=== PATIENT | female | born 1975 | race Two or more races ===

== ENCOUNTER 2018-03-26 18:22 | Emergency (ER) | payer OTHER ==
[2018-03-26] MEDS ORDERED: PIPERACILLIN/TAZO 3.375 GM/DEX 50 ML IV ONE (20:51)
--- NOTE | 2018-03-26 21:11 | EDPHY ---
H & P Stated Complaint: right ear infection for 3 days not getting better with treatment Time Seen by Provider: 03/26/18 19:43 HPI/ROS: Chief complaint: Right ear infection History of present illness: This is a 42-year-old female who presents to the emergency department for right ear infection. She reports the onset of pain and swelling to her right ear 5 days ago. She went to urgent care initially. She was diagnosed with what appears to be an otitis externa. She was initially placed on Cortisporin, she returned 2 days later symptoms persisted and they switched her to Cipro dex. However she states despite this symptoms have worsened with increasing pain and swelling. No report of fever. No report of cold symptoms. No report of headache or neck pain. No trauma. Review of systems: A 10 point review of systems was obtained and other than described above was negative. - Personal History LMP (Females 10-55): 8-14 Days Ago Current Tetanus/Diphtheria Vaccine: Yes Current Tetanus Diphtheria and Acellular Pertussis (TDAP): Yes Tetanus Vaccine Date: 2014 - Medical/Surgical History Hx Asthma: No Hx Chronic Respiratory Disease: No Hx Diabetes: No Hx Cardiac Disease: Yes Hx Renal Disease: No Hx Cirrhosis: No Hx Alcoholism: No Hx HIV/AIDS: No Hx Splenectomy or Spleen Trauma: No Other PMH: heart murmur, thyroid disease, C section x 3. - Social History Smoking Status: Never smoked - Physical Exam Exam: General Appearance: Alert and no distress. Eyes: Pupils equal and round no injection. ENT: The right external ear is mildly erythematous and edematous at the hot a yasir meatus. The external auditory canal is significantly edematous with malodorous discharge. I am unable to visualize the tympanic membrane. There is erythema and mild edema overlying the right mastoid. Left ear is unremarkable. Nasopharynx is not injected. There is no rhinorrhea. Oropharynx is not injected. There is no edema. There is no exudate. There is no asymmetry. The uvula is midline. No elevation of the tongue. There is no hoarseness, no drooling, no trismus, no stridor. Respiratory: Chest is non tender, lungs are clear to auscultation. Cardiac: regular rate and rhythm Musculoskeletal: Neck is supple and non tender. Extremities have full range of motion and are non tender. Skin: No rashes or lesions. Neurological: No meningismus. Alert and oriented x4. Strength and sensation intact and symmetrical. Constitutional: Initial Vital Signs Temperature (C) 37.9 C 03/26/18 18:25 Heart Rate 94 03/26/18 18:25 Respiratory Rate 18 03/26/18 18:25 Blood Pressure 111/70 03/26/18 18:25 O2 Sat (%) 97 03/26/18 18:25 O2 Delivery Mode Room Air Allergies/Adverse Reactions: No Known Allergies Allergy (Verified 03/26/18 18:24) Home Medications: Medication Instructions Recorded Amoxicillin/Clavulanate Pot 875 mg PO BID #20 tab 03/26/18 [Augmentin 875 MG TAB (*)] Amoxicillin/Clavulanate Pot 875 mg PO BID 10 Days tab 03/26/18 [Augmentin 875 MG TAB (*)] Ciprodex 03/26/18 Medical Decision Making - Diagnostics Imaging Results: Imaging Impressions Head CT 03/26/18 19:57 Impression: 1. Fluid completely opacifying the right mastoid air cells, right external auditory canal, and right middle ear suspicious for right otomastoiditis. 2. No abnormalities of the brain. 3. Consider follow-up MRI brain without and with contrast enhancement, if there is continued clinical concern. Findings and recommendations discussed with emergency department physician dental office assistant, Wilian Lawson PA-C at 2040 hours on March 26, 2018. Final report concurs with initial preliminary interpretation. Imaging: Discussed imaging studies w/ yard caller Radiologist Procedures: An ear wick was easily placed into the right external auditory canal. 4 drops of Ciprodex where instilled. ED Course/Re-evaluation: Patient was discussed with my primary supervising physician Dr. Kailey Beyer. Patient presents with worsening right ear pain. CT scan significant reveals evidence of otitis media, otitis externa and mastoiditis. I have consulted with on-call ENT, Dr. Navid Gillis. He recommends an ear wick be placed and patient continue cirpodex. IV Zosyn. Patient can be discharged on Augmentin. Follow up in his clinic on Wednesday. Patient remains well appearing. No evidence of toxicity. She is discharged home. The importance of following with ENT on Wednesday for recheck was discussed at length. Strict return precautions were given. manufacturing specialist was utilized to facilitate communication. Differential Diagnosis: Included but not limited to otitis externa including malignant otitis externa, otitis media, mastoiditis, unlikely abscess or meningitis - Data Points Medications Given: Discontinued Medications Piperacillin/Tazobactam/Dextrose (Zosyn 3.375 Gm (Premix)) 50 mls @ 100 mls/hr IV EDNOW ONE PRN Reason: Protocol Stop: 03/26/18 21:20 Last Admin: 03/26/18 21:22 Dose: 50 mls Ibuprofen (Motrin) 600 mg PO EDNOW ONE Stop: 03/26/18 21:13 Last Admin: 03/26/18 21:15 Dose: 600 mg Departure - Departure Disposition: Home, Routine, Self-Care Clinical Impression: Otitis externa Qualifiers: Otitis externa type: unspecified type Chronicity: acute Laterality: right Qualified Code(s): H60.501 - Unspecified acute noninfective otitis externa, right ear Otitis media Qualifiers: Otitis media type: unspecified Chronicity: acute Qualified Code(s): H66.90 - Otitis media, unspecified, unspecified ear Mastoiditis Qualifiers: Laterality: right Qualified Code(s): H70.91 - Unspecified mastoiditis, right ear Condition: Good Instructions: Otitis Externa (ED), Ear Infection (ED), Mastoiditis (ED) Additional Instructions: Please call the ENT doctor on Wednesday, tell them you were seen in the ER this and need a follow-up appointment on Wednesday without fail Take the oral antibiotics as prescribed until finished, even if feeling better. Continue to use the ear drops antibiotics twice a day until told otherwise by ENT The ENT doctor will remove the ear wick for you, if it falls out before then, that is okay If symptoms worsen or new symptoms develop please return immediately to the emergency room Llame al medico de ENT el , digales que la horner visot en la kadi de emergencias sarah fin de semana y necesita es ck de seguimiento el sin falta. [place] los antibioticos orales micky lo recetado hasta que termine, incluso si se siente mejor. Continue usando las gotas antibioticas para los oidos dos veces al zuri hasta que indique lo contrario El otorrinnolaringologo le quitara la mecha de la oreja, si se le antes, entoces esta terese. Sin los sintomas empeoran o se desarrollan nuevos sintomas, regrese de inmediato a la kadi de emergencias. Referrals: Sumaya Marquez MD [Primary Care Provider] - As per Instructions Navid Gillis MD [Medical Doctor] - As per Instructions Prescriptions: Amoxicillin/Clavulanate Pot [Augmentin 875 MG TAB (*)] 875 mg PO BID 10 Days tab Amoxicillin/Clavulanate Pot [Augmentin 875 MG TAB (*)] 875 mg PO BID #20 tab Print Language: American
[2018-03-26] MEDS ORDERED: IBUPROFEN 600 MG TAB PO ONE (21:12)
[2018-03-26 22:10] VITALS: BP 121/66
== END 2018-03-26 22:10 | disposition home or self-care (01) ==
DX: H60.501 Unspecified acute noninfective otitis externa, right ear (principal); H66.91 Otitis media, unspecified, right ear; H70.91 Unspecified mastoiditis, right ear
CPT/HCPCS: 96365; J2543